=== PATIENT | female | born 1990 | race African-American/Black ===

== ENCOUNTER 2016-03-01 18:32 | Emergency (ER) | payer OTHER ==
[~2016-03-01] VITALS: Ht 152.4 cm; Wt 61.7 kg
[2016-03-01 18:32] VITALS: BP 119/77
[~2016-03-01 18:32] MED LIST: ACYCLOVIR 400400 MG PO; AMOXICILLIN 50500 M1 PO; APAP500 PO; CIPROFLOXACIN500 M1 PO; CITRATE OF MAG296 ML PO; CLEOCIN HCL300 MG PO; COLACE100 MG PO; DOXYCYCLINE 10100 MG PO; FAMCYCLOVIR 50500 M1 PO; FAMVIR250 MG PO; FLAGYL500 MG PO; HYDROCODON-ACE1 EAC7; HYDROCODONE-AP1 EAC6 PO; IBUPROFEN 600600 M1 PO; KEFLEX500 MG PO; LEVAQUIN 500 M500 M4 PO; MACROBID 100 M100 M1 PO; MEDROLDOSEPACK PO; NAPROSYN500 MG PO; NOHOMEMEDICATIONS; NORCO 5-325 TA1 EACH PO; ONDANSETRON HCL4 M2 PO; PERCOCET 5-3251 EACH PO; PHENERGAN50 MG RC; PRENATAL COMPL1 EACH PO; PRENATAL PO; ULTRAM 50MG TAB50 MG PO; VALTREX 500 MG500 M1 PO; ZANTAC 150MG T150 M1 PO; ZOFRAN ODT4 MG PO
[2016-03-01] MEDS ORDERED: AMOXICILLIN 50500 MG PO (18:36)
[2016-03-01] MEDS ORDERED: ACETAMINOPHEN-1 EAC1 PO (18:37)
[2016-03-01] MEDS ORDERED: MOBIC15 MG PO (18:53)
== END 2016-03-01 19:18 | disposition home or self-care (01) ==
LOC: ER 18:32
DX: K08.89 Other specified disorders of teeth and supporting structures (principal); Z87.891 Personal history of nicotine dependence; F10.99 Alcohol use, unspecified with unspecified alcohol-induced disorder

== ENCOUNTER 2017-08-29 13:52 | Emergency (ER) | payer OTHER ==
[~2017-08-29] VITALS: Ht 154.9 cm; Wt 61.7 kg
[~2017-08-29 13:52] MED LIST changes: +ACETAMINOPHEN-1 EAC1 PO; +AMOXICILLIN 50500 MG PO; +MOBIC15 MG PO
[2017-08-29 14:31] LABS: URINE BILIRUBIN NEGATIVE (Negative); URINE BLOOD NEGATIVE (Negative); URINE CLARITY CLEAR; URINE COLOR YELLOW; URINE GLUCOSE-RANDOM* NEGATIVE (Negative); URINE KETONES NEGATIVE (Negative); URINE LEUKOCYTES-REFLEX NEGATIVE (Negative); URINE NITRITE-REFLEX NEGATIVE (Negative); URINE PROTEIN (DIPSTICK) NEGATIVE (Negative); URINE SPECIFIC GRAVITY 1.025 (1.005-1.035); URINE UROBILINOGEN 0.2 E.U./dl (0.2-1.0)
[2017-08-29 14:38] LABS: ABSOLUTE NEUTROPHILS 1.4 thou/uL (1.4-8.2); BASOPHILS 0.4 % (0.0-2.0); EOSINOPHILS 2.6 % (0.0-3.0); HEMATOCRIT 32.4 % (37.0-47.0); HEMOGLOBIN 10.8 gm/dL (12.0-15.0); LYMPHOCYTES 50.7 % (24.0-44.0); MCH 28.4 pg (26.0-34.0); MCHC 33.3 g/dL (28.0-37.0); MCV 85.4 fL (80.0-100.0); PLATELET COUNT 219 thou/uL (150-400); POLYS 40.3 % (36.0-66.0); RBC 3.79 mil/uL (4.20-5.00); RDW 15.2 % (10.5-14.5); WBC 3.5 thou/uL (4.0-11.0)
[2017-08-29 14:50] LABS: CALCIUM 8.1 mg/dL (8.5-10.1); CREATININE 0.9 mg/dL (0.6-1.0); POTASSIUM 3.7 mmol/L (3.5-5.1)
[2017-08-29 14:54] LABS: ALBUMIN 3.3 g/dL (3.4-5.0); TOTAL BILIRUBIN 0.3 mg/dL (<0.1-1.0); TOTAL PROTEIN 6.9 g/dL (6.4-8.2)
[2017-08-29] MEDS ORDERED: MOBIC7.5 MG PO (17:58)
[2017-08-29 18:13] VITALS: BP 105/73
== END 2017-08-29 18:14 | disposition home or self-care (01) ==
LOC: ER 13:52
PROVIDERS: Nurse Practitioner Family
DX: N72 Inflammatory disease of cervix uteri (principal); N80.9 Endometriosis, unspecified; Z87.891 Personal history of nicotine dependence; Z88.6 Allergy status to analgesic agent; Z88.8 Allergy status to other drugs, medicaments and biological substances

== ENCOUNTER 2018-02-08 18:53 | Emergency (ER) | payer OTHER ==
[~2018-02-08] VITALS: Ht 154.9 cm; Wt 69.0 kg
[~2018-02-08 18:53] MED LIST changes: +MOBIC7.5 MG PO
[2018-02-08 19:09] LABS: URINE BILIRUBIN NEGATIVE (Negative); URINE BLOOD 3+ (Negative); URINE CLARITY CLEAR; URINE COLOR YELLOW; URINE GLUCOSE-RANDOM* NEGATIVE (Negative); URINE KETONES TRACE (Negative); URINE LEUKOCYTES-REFLEX NEGATIVE (Negative); URINE NITRITE-REFLEX NEGATIVE (Negative); URINE PROTEIN (DIPSTICK) 2+ (Negative); URINE UROBILINOGEN 0.2 E.U./dl (0.2-1.0)
[2018-02-08 19:20] LABS: BACTERIA-REFLEX 1-9 Few /HPF (None Seen); CASTS None Seen /LPF (None Seen); CRYSTALS None Seen /LPF (None Seen); SQUAMOUS 4-10 Moderate /LPF (0-3); URINE RBC 3-10 Few /HPF (0-2); URINE WBC-REFLEX 0-5 Rare /HPF (0-5)
[2018-02-08 20:09] LABS: HEMATOCRIT 33.8 % (37.0-47.0); HEMOGLOBIN 11.4 gm/dL (12.0-15.0); MCH 29.9 pg (26.0-34.0); MCHC 33.7 g/dL (28.0-37.0); MCV 88.7 fL (80.0-100.0); PLATELET COUNT 182 thou/uL (150-400); RDW 14.6 % (10.5-14.5); WBC 3.7 thou/uL (4.0-11.0)
[2018-02-08 20:12] LABS: CALCIUM 8.3 mg/dL (8.5-10.1); POTASSIUM 3.2 mmol/L (3.5-5.1)
[2018-02-08 20:24] LABS: ABSOLUTE NEUTROPHILS 2.2 thou/uL (1.4-8.2); ATYPICAL LYMPHS 2 %; PLATELET ESTIMATE NORMAL
[2018-02-08] MEDS ORDERED: ZOFRAN4 MG PO (20:33)
[2018-02-08 22:38] VITALS: BP 98/48
== END 2018-02-08 21:50 | disposition home or self-care (01) ==
LOC: ER 18:53
PROVIDERS: Student in an Organized Health Care Education/Training Program
DX: J09.X2 Influenza due to identified novel influenza A virus with other respiratory manifestations (principal); R11.2 Nausea with vomiting, unspecified; F17.210 Nicotine dependence, cigarettes, uncomplicated; Z98.890 Other specified postprocedural states; Z88.6 Allergy status to analgesic agent

== ENCOUNTER 2018-03-30 18:17 | Emergency (ER) | payer OTHER ==
[~2018-03-30] VITALS: Ht 154.9 cm; Wt 63.5 kg
[~2018-03-30 18:17] MED LIST changes: +ZOFRAN4 MG PO
[2018-03-30 18:59] LABS: URINE BILIRUBIN NEGATIVE (Negative); URINE BLOOD 2+ (Negative); URINE CLARITY CLEAR; URINE COLOR YELLOW; URINE GLUCOSE-RANDOM* NEGATIVE (Negative); URINE KETONES NEGATIVE (Negative); URINE LEUKOCYTES-REFLEX NEGATIVE (Negative); URINE NITRITE-REFLEX NEGATIVE (Negative); URINE PROTEIN (DIPSTICK) NEGATIVE (Negative); URINE SPECIFIC GRAVITY <= 1.005 (1.005-1.035); URINE UROBILINOGEN 0.2 E.U./dl (0.2-1.0)
[2018-03-30 19:37] LABS: BACTERIA-REFLEX None Seen /HPF (None Seen); CASTS None Seen /LPF (None Seen); CRYSTALS None Seen /LPF (None Seen); SQUAMOUS 0-3 Few /LPF (0-3); URINE RBC 0-2 Rare /HPF (0-2); URINE WBC-REFLEX None Seen /HPF (0-5)
[2018-03-30 20:09] LABS: ABSOLUTE NEUTROPHILS 2.1 thou/uL (1.4-8.2); BASOPHILS 0.3 % (0.0-2.0); EOSINOPHILS 2.3 % (0.0-3.0); HEMATOCRIT 33.9 % (37.0-47.0); HEMOGLOBIN 11.4 gm/dL (12.0-15.0); LYMPHOCYTES 45.8 % (24.0-44.0); MCHC 33.5 g/dL (28.0-37.0); MCV 86.6 fL (80.0-100.0); PLATELET COUNT 228 thou/uL (150-400); POLYS 41.6 % (36.0-66.0); RBC 3.91 mil/uL (4.20-5.00); RDW 14.2 % (10.5-14.5); WBC 5.2 thou/uL (4.0-11.0)
[2018-03-30 20:25] LABS: CALCIUM 9.2 mg/dL (8.5-10.1); CREATININE 0.8 mg/dL (0.6-1.0); POTASSIUM 3.8 mmol/L (3.5-5.1)
[2018-03-30 20:34] LABS: ALBUMIN 3.6 g/dL (3.4-5.0); TOTAL BILIRUBIN 0.2 mg/dL (<0.1-1.0); TOTAL PROTEIN 7.1 g/dL (6.4-8.2)
[2018-03-30] MEDS ORDERED: NORCO 5-325 TA1 EACH PO (21:12)
[2018-03-30 21:45] VITALS: BP 116/72
== END 2018-03-30 21:46 | disposition home or self-care (01) ==
LOC: ER 18:17
PROVIDERS: Emergency Medicine
DX: R10.30 Lower abdominal pain, unspecified (principal); R11.2 Nausea with vomiting, unspecified; R30.0 Dysuria; F17.210 Nicotine dependence, cigarettes, uncomplicated; N80.9 Endometriosis, unspecified; Z88.6 Allergy status to analgesic agent; Z98.890 Other specified postprocedural states

== ENCOUNTER 2018-07-05 22:37 | Emergency (ER) | payer OTHER ==
[~2018-07-05] VITALS: Ht 154.9 cm; Wt 66.2 kg
[2018-07-05 23:41] LABS: URINE BILIRUBIN NEGATIVE (Negative); URINE BLOOD NEGATIVE (Negative); URINE CLARITY CLEAR; URINE COLOR YELLOW; URINE GLUCOSE-RANDOM* NEGATIVE (Negative); URINE KETONES NEGATIVE (Negative); URINE LEUKOCYTES-REFLEX NEGATIVE (Negative); URINE NITRITE-REFLEX NEGATIVE (Negative); URINE PROTEIN (DIPSTICK) NEGATIVE (Negative); URINE SPECIFIC GRAVITY 1.025 (1.005-1.035); URINE UROBILINOGEN 0.2 E.U./dl (0.2-1.0)
[2018-07-05 23:41] LABS: ABSOLUTE NEUTROPHILS 2.6 thou/uL (1.4-8.2); BASOPHILS 0.3 % (0.0-2.0); EOSINOPHILS 3.4 % (0.0-3.0); HEMATOCRIT 35.9 % (37.0-47.0); HEMOGLOBIN 11.7 gm/dL (12.0-15.0); LYMPHOCYTES 42.1 % (24.0-44.0); MCH 27.3 pg (26.0-34.0); MCHC 32.6 g/dL (28.0-37.0); MCV 83.7 fL (80.0-100.0); PLATELET COUNT 257 thou/uL (150-400); POLYS 47.2 % (36.0-66.0); RBC 4.29 mil/uL (4.20-5.00); RDW 15.4 % (10.5-14.5); WBC 5.6 thou/uL (4.0-11.0)
[2018-07-05 23:43] LABS: CALCIUM 8.9 mg/dL (8.5-10.1); CREATININE 1.1 mg/dL (0.6-1.0)
[2018-07-06] MEDS ORDERED: NORCO 5-325 TA1 EACH PO (00:45)
[2018-07-06 01:01] VITALS: BP 101/64
== END 2018-07-06 01:01 | disposition home or self-care (01) ==
LOC: ER 22:37
PROVIDERS: Emergency Medicine
DX: N80.9 Endometriosis, unspecified (principal); F17.210 Nicotine dependence, cigarettes, uncomplicated; Z88.5 Allergy status to narcotic agent; Z88.6 Allergy status to analgesic agent

== ENCOUNTER 2018-07-30 16:45 | Emergency (ER) | payer OTHER ==
[~2018-07-30] VITALS: Ht 154.9 cm; Wt 63.5 kg
[2018-07-30 17:05] LABS: URINE BILIRUBIN NEGATIVE (Negative); URINE BLOOD NEGATIVE (Negative); URINE CLARITY CLEAR; URINE COLOR YELLOW; URINE GLUCOSE-RANDOM* NEGATIVE (Negative); URINE KETONES NEGATIVE (Negative); URINE LEUKOCYTES-REFLEX TRACE (Negative); URINE NITRITE-REFLEX NEGATIVE (Negative); URINE PROTEIN (DIPSTICK) NEGATIVE (Negative); URINE SPECIFIC GRAVITY 1.015 (1.005-1.035); URINE UROBILINOGEN 0.2 E.U./dl (0.2-1.0)
[2018-07-30 17:17] LABS: ABSOLUTE NEUTROPHILS 3.8 thou/uL (1.4-8.2); MCH 27.2 pg (26.0-34.0); POLYS 63.8 % (36.0-66.0)
[2018-07-30 17:19] LABS: BASOPHILS 0.2 % (0.0-2.0); EOSINOPHILS 0.4 % (0.0-3.0); HEMATOCRIT 39.2 % (37.0-47.0); HEMOGLOBIN 12.8 gm/dL (12.0-15.0); LYMPHOCYTES 29.6 % (24.0-44.0); MCHC 32.7 g/dL (28.0-37.0); PLATELET COUNT 235 thou/uL (150-400); RBC 4.72 mil/uL (4.20-5.00); RDW 15.3 % (10.5-14.5)
[2018-07-30 17:21] LABS: CALCIUM 9.4 mg/dL (8.5-10.1); POTASSIUM 3.9 mmol/L (3.5-5.1)
[2018-07-30] MEDS ORDERED: NAPROSYN500 MG PO (18:28)
[2018-07-30] MEDS ORDERED: FLAGYL500 M1 PO (18:28)
[2018-07-30] MEDS ORDERED: ONDANSETRON HCL4 M2 PO (18:36)
[2018-07-30 18:40] VITALS: BP 97/57
== END 2018-07-30 18:40 | disposition home or self-care (01) ==
LOC: ER 16:45
PROVIDERS: Physician Assistant
DX: N76.0 Acute vaginitis (principal); B96.89 Other specified bacterial agents as the cause of diseases classified elsewhere; R10.2 Pelvic and perineal pain; F17.210 Nicotine dependence, cigarettes, uncomplicated; Z98.890 Other specified postprocedural states; Z88.6 Allergy status to analgesic agent; Z88.5 Allergy status to narcotic agent

== ENCOUNTER 2018-10-08 12:54 | Emergency (ER) | payer OTHER ==
[~2018-10-08] VITALS: Ht 154.9 cm; Wt 66.2 kg
[~2018-10-08 12:54] MED LIST changes: +ACYCLOVIR 200200 MG PO; +FLAGYL500 M1 PO; +NORFLEX100 MG PO; +PROMS25 WY RECTAL; +ZOFRAN ODT4 MG DISSOLVE
[2018-10-08 13:19] LABS: URINE BILIRUBIN NEGATIVE (Negative); URINE BLOOD NEGATIVE (Negative); URINE CLARITY CLEAR; URINE COLOR YELLOW; URINE GLUCOSE-RANDOM* NEGATIVE (Negative); URINE KETONES NEGATIVE (Negative); URINE LEUKOCYTES-REFLEX NEGATIVE (Negative); URINE NITRITE-REFLEX NEGATIVE (Negative); URINE PROTEIN (DIPSTICK) NEGATIVE (Negative); URINE SPECIFIC GRAVITY >= 1.030 (1.005-1.035); URINE UROBILINOGEN 0.2 E.U./dl (0.2-1.0)
[2018-10-08 13:40] LABS: ABSOLUTE NEUTROPHILS 3.7 thou/uL (1.4-8.2); EOSINOPHILS 1.4 % (0.0-3.0); HEMATOCRIT 37.5 % (37.0-47.0); HEMOGLOBIN 12.4 gm/dL (12.0-15.0); LYMPHOCYTES 33.3 % (24.0-44.0); MCV 84.9 fL (80.0-100.0); MONOCYTES 7.3 % (1.0-8.0); PLATELET COUNT 261 thou/uL (150-400); RBC 4.42 mil/uL (4.20-5.00); RDW 16.4 % (10.5-14.5); WBC 6.5 thou/uL (4.0-11.0)
[2018-10-08 13:47] LABS: CALCIUM 9.3 mg/dL (8.5-10.1); CREATININE 1.1 mg/dL (0.6-1.0); POTASSIUM 3.8 mmol/L (3.5-5.1)
[2018-10-08 13:53] LABS: ALBUMIN 3.8 g/dL (3.4-5.0); TOTAL BILIRUBIN 0.2 mg/dL (<0.1-1.0)
[2018-10-08] MEDS ORDERED: NAPROSYN500 MG PO (15:26)
[2018-10-08 16:37] VITALS: BP 110/57
[2018-10-08] MEDS ORDERED: MUPIROCIN15 GM TOP (16:45)
== END 2018-10-08 16:53 | disposition home or self-care (01) ==
LOC: ER 12:54
PROVIDERS: Physician Assistant
DX: R10.30 Lower abdominal pain, unspecified (principal); R21 Rash and other nonspecific skin eruption; R11.2 Nausea with vomiting, unspecified; Z86.69 Personal history of other diseases of the nervous system and sense organs; F17.210 Nicotine dependence, cigarettes, uncomplicated; N80.9 Endometriosis, unspecified; Z88.6 Allergy status to analgesic agent; Z98.890 Other specified postprocedural states

== ENCOUNTER 2018-10-29 06:24 | Emergency (ER) | payer OTHER ==
[~2018-10-29] VITALS: Ht 154.9 cm; Wt 66.5 kg
[~2018-10-29 06:24] MED LIST changes: +MUPIROCIN15 GM TOP
[2018-10-29] MEDS ORDERED: BENTYL 20 MG TA20 M1 PO (06:32)
[2018-10-29] MEDS ORDERED: ACYCLOVIR 400400 MG PO (06:32)
[2018-10-29] MEDS ORDERED: VISTARIL 25 MG25 M1 PO (06:33)
[2018-10-29 06:45] LABS: ABSOLUTE NEUTROPHILS 5.7 thou/uL (1.4-8.2); BASOPHILS 0.3 % (0.0-2.0); EOSINOPHILS 1.4 % (0.0-3.0); HEMATOCRIT 39.1 % (37.0-47.0); HEMOGLOBIN 12.2 gm/dL (12.0-15.0); LYMPHOCYTES 40.7 % (24.0-44.0); MCH 27.2 pg (26.0-34.0); MCHC 31.1 g/dL (28.0-37.0); MCV 87.4 fL (80.0-100.0); MONOCYTES 9.8 % (1.0-8.0); PLATELET COUNT 338 thou/uL (150-400); POLYS 47.8 % (36.0-66.0); RBC 4.47 mil/uL (4.20-5.00); RDW 16.3 % (10.5-14.5)
[2018-10-29 06:52] LABS: ANION GAP 11 mmol/L (7-16); BUN 8 mg/dL (7-18); CALCIUM 9.4 mg/dL (8.5-10.1); CHLORIDE 100 mmol/L (98-107); CO2 28 mmol/L (21-32); CREATININE 0.8 mg/dL (0.6-1.0); GLUCOSE 108 mg/dL (74-106); POTASSIUM 3.6 mmol/L (3.5-5.1); SODIUM 139 mmol/L (136-145)
[2018-10-29 07:00] LABS: MAGNESIUM 1.9 mg/dL (1.8-2.4); SALICYLATE < 2.8 mg/dL (2.8-20.0); SGOT 43 U/L (15-37); SGPT 67 U/L (30-65); TOTAL BILIRUBIN 0.2 mg/dL (<0.1-1.0)
[2018-10-29 07:09] LABS: URINE BILIRUBIN NEGATIVE (Negative); URINE BLOOD NEGATIVE (Negative); URINE CLARITY CLEAR; URINE COLOR YELLOW; URINE GLUCOSE-RANDOM* NEGATIVE (Negative); URINE KETONES NEGATIVE (Negative); URINE LEUKOCYTES-REFLEX 1+ (Negative); URINE NITRITE-REFLEX NEGATIVE (Negative); URINE PROTEIN (DIPSTICK) NEGATIVE (Negative); URINE SPECIFIC GRAVITY 1.015 (1.005-1.035); URINE UROBILINOGEN 0.2 E.U./dl (0.2-1.0)
[2018-10-29 07:17] LABS: AMP/METHAMP Negative (Negative); BACTERIA-REFLEX None Seen /HPF (None Seen); BARBITURATES Negative (Negative); BENZODIAZEPINES Negative (Negative); CASTS None Seen /LPF (None Seen); COCAINE Negative (Negative); CRYSTALS None Seen /LPF (None Seen); METHADONE Negative (Negative); OPIATES POSITIVE (Negative); PCP Negative (Negative); SQUAMOUS >10 Many /LPF (0-3); URINE RBC 0-2 Rare /HPF (0-2); URINE WBC-REFLEX 0-5 Rare /HPF (0-5)
[2018-10-29 08:18] VITALS: BP 108/57
== END 2018-10-29 08:26 | disposition home or self-care (01) ==
LOC: ER 06:24
PROVIDERS: Emergency Medicine
DX: R56.9 Unspecified convulsions (principal); E03.9 Hypothyroidism, unspecified; R19.7 Diarrhea, unspecified; N80.9 Endometriosis, unspecified; F11.90 Opioid use, unspecified, uncomplicated; F17.210 Nicotine dependence, cigarettes, uncomplicated; Z98.890 Other specified postprocedural states; Z88.6 Allergy status to analgesic agent

== ENCOUNTER 2019-02-04 09:20 | Emergency (ER) | payer OTHER ==
[~2019-02-04] VITALS: Ht 154.9 cm; Wt 66.2 kg
[~2019-02-04 09:20] MED LIST changes: +BENTYL 20 MG TA20 M1 PO; +VISTARIL 25 MG25 M1 PO
[2019-02-04] MEDS ORDERED: KEPPRA 500 MG500 M1 PO (09:40)
[2019-02-04] MEDS ORDERED: KEFLEX500 M2 PO (09:41)
[2019-02-04] MEDS ORDERED: FOLIC ACID1 MG PO (09:41)
[2019-02-04] MEDS ORDERED: PREPLUS CA-FE1 EACH PO (09:41)
[2019-02-04 10:11] LABS: ABSOLUTE NEUTROPHILS 3.6 thou/uL (1.4-8.2); EOSINOPHILS 1.2 % (0.0-3.0); HEMATOCRIT 31.3 % (37.0-47.0); LYMPHOCYTES 30.6 % (24.0-44.0); MCH 25.6 pg (26.0-34.0); MCHC 31.9 g/dL (28.0-37.0); MCV 80.3 fL (80.0-100.0); MONOCYTES 7.5 % (1.0-8.0); PLATELET COUNT 319 thou/uL (150-400); POLYS 59.7 % (36.0-66.0); RDW 16.7 % (10.5-14.5); WBC 6.1 thou/uL (4.0-11.0)
[2019-02-04 10:20] LABS: CALCIUM 9.5 mg/dL (8.5-10.1); CREATININE 0.8 mg/dL (0.6-1.0); POTASSIUM 3.9 mmol/L (3.5-5.1)
[2019-02-04 10:26] LABS: ALBUMIN 3.6 g/dL (3.4-5.0); TOTAL BILIRUBIN 0.1 mg/dL (<0.1-1.0); TOTAL PROTEIN 7.9 g/dL (6.4-8.2)
[2019-02-04 10:28] LABS: URINE BILIRUBIN NEGATIVE (Negative); URINE BLOOD 1+ (Negative); URINE CLARITY CLEAR; URINE COLOR YELLOW; URINE GLUCOSE-RANDOM* NEGATIVE (Negative); URINE KETONES NEGATIVE (Negative); URINE LEUKOCYTES-REFLEX NEGATIVE (Negative); URINE NITRITE-REFLEX NEGATIVE (Negative); URINE PROTEIN (DIPSTICK) NEGATIVE (Negative); URINE SPECIFIC GRAVITY 1.025 (1.005-1.035); URINE UROBILINOGEN 0.2 E.U./dl (0.2-1.0)
[2019-02-04 10:37] LABS: SQUAMOUS 4-10 Moderate /LPF (0-3)
[2019-02-04 10:38] LABS: CASTS None Seen /LPF (None Seen); CRYSTALS None Seen /LPF (None Seen); MUCUS 0-3 Light strn/LPF (None Seen)
[2019-02-04 10:39] LABS: BACTERIA-REFLEX 1-9 Few /HPF (None Seen); URINE RBC 0-2 Rare /HPF (0-2); URINE WBC-REFLEX 0-5 Rare /HPF (0-5)
[2019-02-04 12:10] VITALS: BP 120/69
== END 2019-02-04 12:12 | disposition home or self-care (01) ==
LOC: ER 09:20
PROVIDERS: Emergency Medicine
DX: O20.9 Hemorrhage in early pregnancy, unspecified (principal); O99.331 Smoking (tobacco) complicating pregnancy, first trimester; F17.210 Nicotine dependence, cigarettes, uncomplicated; Z88.6 Allergy status to analgesic agent; Z88.8 Allergy status to other drugs, medicaments and biological substances; Z98.890 Other specified postprocedural states; Z3A.01 Less than 8 weeks gestation of pregnancy

== ENCOUNTER 2019-04-23 12:09 | Emergency (ER) | payer OTHER ==
[~2019-04-23] VITALS: Ht 154.9 cm; Wt 65.3 kg
[~2019-04-23 12:09] MED LIST changes: +FOLIC ACID1 MG PO; +KEFLEX500 M2 PO; +KEPPRA 500 MG500 M1 PO; +PREPLUS CA-FE1 EACH PO
[2019-04-23 13:06] LABS: ABSOLUTE NEUTROPHILS 4.5 thou/uL (1.4-8.2); BASOPHILS 0.3 % (0.0-2.0); EOSINOPHILS 0.6 % (0.0-3.0); HEMATOCRIT 34.5 % (37.0-47.0); HEMOGLOBIN 11.2 gm/dL (12.0-15.0); LYMPHOCYTES 23.1 % (24.0-44.0); MCHC 32.6 g/dL (28.0-37.0); MCV 82.9 fL (80.0-100.0); MONOCYTES 6.1 % (1.0-8.0); PLATELET COUNT 259 thou/uL (150-400); POLYS 69.9 % (36.0-66.0); RBC 4.16 mil/uL (4.20-5.00); RDW 17.3 % (10.5-14.5); WBC 6.5 thou/uL (4.0-11.0)
[2019-04-23 13:11] LABS: CALCIUM 9.3 mg/dL (8.5-10.1); CREATININE 0.7 mg/dL (0.6-1.0); POTASSIUM 3.8 mmol/L (3.5-5.1)
[2019-04-23 14:15] LABS: URINE BILIRUBIN NEGATIVE (Negative); URINE BLOOD NEGATIVE (Negative); URINE CLARITY CLEAR; URINE COLOR YELLOW; URINE GLUCOSE-RANDOM* NEGATIVE (Negative); URINE KETONES NEGATIVE (Negative); URINE LEUKOCYTES-REFLEX NEGATIVE (Negative); URINE NITRITE-REFLEX NEGATIVE (Negative); URINE PROTEIN (DIPSTICK) NEGATIVE (Negative); URINE SPECIFIC GRAVITY 1.025 (1.005-1.035); URINE UROBILINOGEN 0.2 E.U./dl (0.2-1.0)
[2019-04-23 16:23] VITALS: BP 94/48
== END 2019-04-23 16:20 | disposition home or self-care (01) ==
LOC: ER 12:09
PROVIDERS: Emergency Medicine
DX: O26.892 Other specified pregnancy related conditions, second trimester (principal); R10.30 Lower abdominal pain, unspecified; O99.512 Diseases of the respiratory system complicating pregnancy, second trimester; J06.9 Acute upper respiratory infection, unspecified; R11.0 Nausea; O99.332 Smoking (tobacco) complicating pregnancy, second trimester; F17.210 Nicotine dependence, cigarettes, uncomplicated; Z3A.16 16 weeks gestation of pregnancy; Z79.2 Long term (current) use of antibiotics; Z79.899 Other long term (current) drug therapy; Z88.8 Allergy status to other drugs, medicaments and biological substances; Z88.6 Allergy status to analgesic agent

== ENCOUNTER 2019-05-10 15:56 | Emergency (ER) | payer OTHER ==
[~2019-05-10] VITALS: Ht 154.9 cm; Wt 66.2 kg
[2019-05-10 16:43] LABS: URINE BILIRUBIN NEGATIVE (Negative); URINE BLOOD TRACE (Negative); URINE CLARITY CLEAR; URINE COLOR YELLOW; URINE GLUCOSE-RANDOM* NEGATIVE (Negative); URINE KETONES NEGATIVE (Negative); URINE LEUKOCYTES-REFLEX NEGATIVE (Negative); URINE NITRITE-REFLEX NEGATIVE (Negative); URINE PROTEIN (DIPSTICK) NEGATIVE (Negative); URINE SPECIFIC GRAVITY 1.025 (1.005-1.035); URINE UROBILINOGEN 0.2 E.U./dl (0.2-1.0)
[2019-05-10 17:29] LABS: ABSOLUTE NEUTROPHILS 9.9 thou/uL (1.4-8.2); BASOPHILS 0.2 % (0.0-2.0); EOSINOPHILS 0.4 % (0.0-3.0); HEMOGLOBIN 10.9 gm/dL (12.0-15.0); LYMPHOCYTES 14.9 % (24.0-44.0); MCH 26.7 pg (26.0-34.0); MCHC 31.9 g/dL (28.0-37.0); MCV 83.7 fL (80.0-100.0); MONOCYTES 5.5 % (1.0-8.0); PLATELET COUNT 257 thou/uL (150-400); RBC 4.07 mil/uL (4.20-5.00); RDW 16.5 % (10.5-14.5); WBC 12.6 thou/uL (4.0-11.0)
[2019-05-10 17:38] LABS: CALCIUM 8.8 mg/dL (8.5-10.1); CREATININE 0.6 mg/dL (0.6-1.0); POTASSIUM 3.8 mmol/L (3.5-5.1)
[2019-05-10 17:43] LABS: TOTAL BILIRUBIN 0.1 mg/dL (<0.1-1.0); TOTAL PROTEIN 6.8 g/dL (6.4-8.2)
[2019-05-10 19:28] VITALS: BP 104/59
== END 2019-05-10 19:32 | disposition home or self-care (01) ==
LOC: ER 15:56
PROVIDERS: Nurse Practitioner; Physician Assistant
DX: O26.892 Other specified pregnancy related conditions, second trimester (principal); R10.31 Right lower quadrant pain; R31.9 Hematuria, unspecified; Z3A.19 19 weeks gestation of pregnancy; Z79.899 Other long term (current) drug therapy; Z79.2 Long term (current) use of antibiotics; Z88.6 Allergy status to analgesic agent; Z88.8 Allergy status to other drugs, medicaments and biological substances

== ENCOUNTER 2019-09-25 16:45 | Emergency (ER) | payer OTHER ==
[~2019-09-25] VITALS: Ht 154.9 cm; Wt 64.9 kg
[2019-09-25] MEDS ORDERED: NORCO 5-325 TA1 EAC2 PO (20:15)
[2019-09-25 20:36] VITALS: BP 129/71
== END 2019-09-25 20:37 | disposition home or self-care (01) ==
LOC: ER 16:45
DX: G89.18 Other acute postprocedural pain (principal); R10.84 Generalized abdominal pain; F17.210 Nicotine dependence, cigarettes, uncomplicated; Z79.899 Other long term (current) drug therapy; Z88.5 Allergy status to narcotic agent; Z88.8 Allergy status to other drugs, medicaments and biological substances

== ENCOUNTER → 2020-03-07 | Emergency (ER) | payer OTHER ==
[~2020-03-07] MED LIST changes: +NORCO 5-325 TA1 EAC2 PO
[2020-03-07 18:55] LABS: URINE BILIRUBIN NEGATIVE (Negative); URINE BLOOD NEGATIVE (Negative); URINE CLARITY CLEAR; URINE COLOR YELLOW; URINE GLUCOSE-RANDOM* NEGATIVE (Negative); URINE KETONES NEGATIVE (Negative); URINE LEUKOCYTES-REFLEX TRACE (Negative); URINE NITRITE-REFLEX NEGATIVE (Negative); URINE PROTEIN (DIPSTICK) NEGATIVE (Negative); URINE SPECIFIC GRAVITY >= 1.030 (1.005-1.035); URINE UROBILINOGEN 0.2 E.U./dl (0.2-1.0)
== END ==
LOC: ER 17:52
PROVIDERS: Emergency Medicine
DX: I10 Essential (primary) hypertension (principal); Z53.21 Procedure and treatment not carried out due to patient leaving prior to being seen by health care provider

== ENCOUNTER 2020-06-03 12:25 | Emergency (ER) | payer OTHER ==
[~2020-06-03] VITALS: Ht 154.9 cm; Wt 63.5 kg
[2020-06-03 14:25] LABS: URINE BILIRUBIN NEGATIVE (Negative); URINE BLOOD NEGATIVE (Negative); URINE CLARITY CLEAR; URINE COLOR YELLOW; URINE GLUCOSE-RANDOM* NEGATIVE (Negative); URINE KETONES NEGATIVE (Negative); URINE LEUKOCYTES-REFLEX TRACE (Negative); URINE NITRITE-REFLEX NEGATIVE (Negative); URINE PROTEIN (DIPSTICK) NEGATIVE (Negative); URINE UROBILINOGEN 0.2 E.U./dl (0.2-1.0)
[2020-06-03] MEDS ORDERED: AUGMENTIN 875-1 EACH PO (14:47)
[2020-06-03] MEDS ORDERED: PROMETHAZINE-D473 M1 PO (14:47)
[2020-06-03 15:20] VITALS: BP 112/56
== END 2020-06-03 15:20 | disposition home or self-care (01) ==
LOC: ER 12:25
PROVIDERS: Nurse Practitioner Family
DX: J01.10 Acute frontal sinusitis, unspecified (principal); Z20.822 Contact with and (suspected) exposure to COVID-19; F17.210 Nicotine dependence, cigarettes, uncomplicated; Z88.6 Allergy status to analgesic agent; Z79.899 Other long term (current) drug therapy; Z98.890 Other specified postprocedural states

== ENCOUNTER 2020-07-17 18:14 | Emergency (ER) | payer OTHER ==
[~2020-07-17] VITALS: Ht 154.9 cm; Wt 61.2 kg
[~2020-07-17 18:14] MED LIST changes: +AUGMENTIN 875-1 EACH PO; +PROMETHAZINE-D473 M1 PO
[2020-07-17 18:59] LABS: BASOPHILS 0.3 % (0.0-2.0); EOSINOPHILS 1.2 % (0.0-3.0); HEMATOCRIT 39.5 % (37.0-47.0); HEMOGLOBIN 12.9 gm/dL (12.0-15.0); LYMPHOCYTES 22.5 % (24.0-44.0); MCH 29.4 pg (26.0-34.0); MCHC 32.7 g/dL (28.0-37.0); MCV 89.8 fL (80.0-100.0); MONOCYTES 5.7 % (1.0-8.0); PLATELET COUNT 255 thou/uL (150-400); POLYS 70.3 % (36.0-66.0); RBC 4.39 mil/uL (4.20-5.00); RDW 14.7 % (10.5-14.5)
[2020-07-17 19:14] LABS: ANION GAP 8 mmol/L (7-16); BUN 8 mg/dL (7-18); CALCIUM 9.5 mg/dL (8.5-10.1); CHLORIDE 104 mmol/L (98-107); CO2 25 mmol/L (21-32); CREATININE 0.8 mg/dL (0.6-1.0); GLUCOSE 97 mg/dL (74-106); POTASSIUM 3.9 mmol/L (3.5-5.1); SODIUM 137 mmol/L (136-145)
[2020-07-17 19:18] LABS: ALBUMIN 3.7 g/dL (3.4-5.0); SALICYLATE < 2.8 mg/dL (2.8-20.0); SGOT 13 U/L (15-37); SGPT 23 U/L (14-59); TOTAL BILIRUBIN 0.3 mg/dL (0.2-1.0); TOTAL PROTEIN 7.7 g/dL (6.4-8.2)
[2020-07-17 19:29] LABS: URINE BILIRUBIN NEGATIVE (Negative); URINE BLOOD NEGATIVE (Negative); URINE CLARITY CLEAR; URINE COLOR YELLOW; URINE GLUCOSE-RANDOM* NEGATIVE (Negative); URINE KETONES 1+ (Negative); URINE NITRITE-REFLEX NEGATIVE (Negative); URINE PROTEIN (DIPSTICK) NEGATIVE (Negative); URINE UROBILINOGEN 0.2 E.U./dl (0.2-1.0)
[2020-07-17 19:31] LABS: URINE LEUKOCYTES-REFLEX 1+ (Negative)
[2020-07-17 19:36] LABS: BACTERIA-REFLEX 1-9 Few /HPF (None Seen); CRYSTALS None Seen /LPF (None Seen); SQUAMOUS 4-10 Moderate /LPF (0-3); URINE RBC None Seen /HPF (NONE SEEN); URINE WBC-REFLEX 0-5 Rare /HPF (0-5)
[2020-07-17 19:44] LABS: AMP/METHAMP Negative (Negative); BARBITURATES Negative (Negative); BENZODIAZEPINES Negative (Negative); COCAINE Negative (Negative); METHADONE Negative (Negative); OPIATES POSITIVE (Negative); PCP Negative (Negative)
[2020-07-18 07:45] VITALS: BP 108/62
== END 2020-07-18 07:45 ==
LOC: ER 18:14
PROVIDERS: Physician Assistant
DX: R45.851 Suicidal ideations (principal); Z20.822 Contact with and (suspected) exposure to COVID-19; F41.9 Anxiety disorder, unspecified; F17.210 Nicotine dependence, cigarettes, uncomplicated; Z98.890 Other specified postprocedural states; Z88.6 Allergy status to analgesic agent

== ENCOUNTER 2020-10-11 19:23 | Emergency (ER) | payer OTHER ==
[~2020-10-11] VITALS: Ht 154.9 cm; Wt 63.5 kg
[2020-10-11 19:26] VITALS: BP 125/63
[2020-10-11 22:05] LABS: URINE BILIRUBIN NEGATIVE (Negative); URINE BLOOD 1+ (Negative); URINE CLARITY CLEAR; URINE COLOR YELLOW; URINE GLUCOSE-RANDOM* NEGATIVE (Negative); URINE KETONES NEGATIVE (Negative); URINE LEUKOCYTES-REFLEX NEGATIVE (Negative); URINE NITRITE-REFLEX NEGATIVE (Negative); URINE PROTEIN (DIPSTICK) NEGATIVE (Negative); URINE SPECIFIC GRAVITY >= 1.030 (1.005-1.035); URINE UROBILINOGEN 0.2 E.U./dl (0.2-1.0)
[2020-10-11] MEDS ORDERED: ZOFRAN ODT4 MG PO (22:21)
[2020-10-11] MEDS ORDERED: NORCO5 PO (22:21)
[2020-10-11 22:23] LABS: BACTERIA-REFLEX None Seen /HPF (None Seen); CASTS None Seen /LPF (None Seen); CRYSTALS None Seen /LPF (None Seen); MUCUS 0-3 Light strn/LPF (None Seen); SQUAMOUS 0-3 Few /LPF (0-3); TRANSITIONAL EPITHEL CELL 0-3 Few /LPF (None Seen); URINE RBC 1-2 Rare /HPF (NONE SEEN); URINE WBC-REFLEX 0-5 Rare /HPF (0-5)
== END 2020-10-11 23:01 | disposition home or self-care (01) ==
LOC: ER 19:23
PROVIDERS: Nurse Practitioner Family
DX: N83.201 Unspecified ovarian cyst, right side (principal); N83.202 Unspecified ovarian cyst, left side; F17.210 Nicotine dependence, cigarettes, uncomplicated; Z79.899 Other long term (current) drug therapy; Z88.5 Allergy status to narcotic agent; Z88.6 Allergy status to analgesic agent

== ENCOUNTER 2020-11-04 14:31 | Emergency (ER) | payer OTHER ==
[~2020-11-04] VITALS: Ht 154.9 cm; Wt 60.8 kg
[~2020-11-04 14:31] MED LIST changes: +NORCO5 PO
[2020-11-04 14:45] VITALS: BP 105/57
[2020-11-04 15:08] LABS: URINE BILIRUBIN NEGATIVE (Negative); URINE BLOOD NEGATIVE (Negative); URINE CLARITY CLEAR; URINE COLOR YELLOW; URINE GLUCOSE-RANDOM* NEGATIVE (Negative); URINE KETONES NEGATIVE (Negative); URINE NITRITE-REFLEX NEGATIVE (Negative); URINE PROTEIN (DIPSTICK) NEGATIVE (Negative); URINE SPECIFIC GRAVITY 1.025 (1.005-1.035); URINE UROBILINOGEN 0.2 E.U./dl (0.2-1.0)
[2020-11-04 15:20] LABS: URINE LEUKOCYTES-REFLEX 1+ (Negative)
[2020-11-04 15:34] LABS: BACTERIA-REFLEX 1-9 Few /HPF (None Seen); CASTS None Seen /LPF (None Seen); CRYSTALS None Seen /LPF (None Seen); SQUAMOUS 0-3 Few /LPF (0-3); URINE RBC 1-2 Rare /HPF (NONE SEEN); URINE WBC-REFLEX 6-15 Few /HPF (0-5)
[2020-11-04] MEDS ORDERED: NORCO5 PO (15:35)
[2020-11-04] MEDS ORDERED: KEPPRA 500 MG500 M1 PO (15:40)
[2020-11-04] MEDS ORDERED: CEPHALEXIN500 MG PO (15:44)
== END 2020-11-04 15:40 | disposition home or self-care (01) ==
LOC: ER 14:31
PROVIDERS: Emergency Medicine
DX: N39.0 Urinary tract infection, site not specified (principal); R10.2 Pelvic and perineal pain; F17.210 Nicotine dependence, cigarettes, uncomplicated; Z88.6 Allergy status to analgesic agent; Z79.899 Other long term (current) drug therapy; Z88.5 Allergy status to narcotic agent